=== PATIENT | male | born 1965 | race African-American/Black ===

== ENCOUNTER 2019-12-10 15:22 | Inpatient (IN) | payer OTHER ==
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
[2019-12-10] MEDS ORDERED: NS 0.9% 1000 ML** 1,000 ML IV ONE (15:42)
[2019-12-10 16:03] LABS: ABS Basophils 0.1 10^3/ul (0-0.2); ABS Eosinophils 0.1 10^3/ul (0-0.6); ABS Lymphocytes 3.1 10^3/ul (1.0-4.8); ABS Monocytes 0.7 10^3/ul (0-0.8); ABS Neutrophils 4.6 10^3/ul (1.5-7.7); Eosinophil % 1.6 %; Hematocrit 42 % (42-52); Hemoglobin 13.9 g/dL (14.0-18.0); Lymphocyte % 35.6 %; Mean Corpuscular HGB Conc 33 g/dL (31-36); Mean Corpuscular Hemoglobin 28 pg (27-31); Mean Corpuscular Volume 84 fL (80-94); Mean Platelet Volume 7.6 fL (7.4-10.4); Nucleated Red Blood Cells % 0.1; Platelet Count 247 10^3/uL (150-450); Red Blood Count 4.94 10^6 /uL (4.18-5.48); Red Cell Distribution Width 14 % (10-15); White Blood Count 8.6 10^3/uL (3.5-10.8)
[2019-12-10 16:09] LABS: INR 1.1 (0.82-1.09)
[2019-12-10 16:20] LABS: Albumin 4.4 g/dL (3.2-5.2); Albumin/Globulin Ratio 1.6 (1-3); BUN/Creatinine Ratio 7.5 (8-20); Calcium 9.4 mg/dL (8.6-10.3); EGFR African American 76.1 (>60); EGFR Non-African American 62.9 (>60); Globulin 2.8 g/dL (2-4); Potassium 3.9 mmol/L (3.5-5.0); Total Bilirubin 0.4 mg/dL (0.2-1.0); Total Protein 7.2 g/dL (6.4-8.9)
[2019-12-10] MEDS ORDERED: Iodixanol* (CONTRAST) 320 MG/ML 100 ML SDV IV ONE (16:28)
--- NOTE | 2019-12-10 19:21 | ED ---
Progress - Progress Note Progress Note: Patient is received as a sign-out from Dr. Almeida to Dr. Vieira at 1900 shift change pending Brain MRI. BRAIN MRI IMPRESSION: 1 cm ischemic infarct at the right soto radiata and 6 mm ischemic infarct at the left soto radiata. Infarcts are most likely early subacute in age. THIS REPORT WAS REVIEWED BY ED PHYSICIAN. Course/Dx - Course Course Of Treatment: Patient is received as a sign-out from Dr. Almeida at 1900 12/10/19 shift change pending Brain MRI. BRAIN MRI IMPRESSION: 1 cm ischemic infarct at the right soto radiata and 6 mm ischemic infarct at. the left soto radiata. Infarcts are most likely early subacute in age. Patient's case was discussed with Dr. Gage, Dr. Gage accepts for admission. - Diagnoses Provider Diagnoses: CVA (cerebral vascular accident) - Provider Notifications Discussed Care Of Patient With: Estefanía Gage Time Discussed With Above Provider: 20:11 Instructed by Provider To: Other - Patient's case was discussed with Dr. Gage, Dr. Gage accepts for admission. Discharge ED - Sign-Out/Discharge Documenting (check all that apply): Patient Departure - admit, Receiving Sign- Out Receiving patient FROM: Yoandy Almeida - Discharge Plan Condition: Stable Disposition: ADMITTED TO [facility] Referrals: Lan ANNA,Charles Stokes [Primary Care Provider] - - Billing Disposition and Condition Condition: STABLE Disposition: Admitted to [facility] - Attestation Statements Document Initiated by Pasquale: Yes Documenting Scribe: VANCE DESOUZA Provider For Whom Pasquale is Documenting (Include Credential): MD Mary Kay NICHOLSibsamantha Attestation: VANCE Billings, scribed for J CARLOS VIEIRA MD on 12/10/19 at 2039. Scribe Documentation Reviewed: Yes Provider Attestation: The documentation as recorded by the VANCE campos accurately reflects the service I personally performed and the decisions made by , J CARLOS VIEIRA MD Status of Scribe Document: Viewed
[2019-12-10 19:54] LABS: Urine Appearance Clear; Urine Bilirubin Negative (Negative); Urine Blood Negative (Negative); Urine Color Yellow; Urine Glucose Negative (Negative); Urine Ketones Trace (Negative); Urine Nitrite Negative (Negative); Urine Protein Negative (Negative); Urine Specific Gravity 1.047 (1.010-1.030); Urine Urobilinogen Negative (Negative)
[2019-12-10] MEDS ORDERED: Ondansetron INJ* 2 MG/ML VIAL IV PRN (21:11)
[2019-12-10] MEDS ORDERED: Acetaminophen TAB* 325 MG PO PRN (21:11)
[2019-12-10] MEDS ORDERED: Dextrose 50% Syringe 50 ML* 25 GM/50 ML SYRINGE IV PUSH PRN (21:11)
[2019-12-10 21:33] LABS: ABS Basophils 0.1 10^3/ul (0-0.2); ABS Eosinophils 0.1 10^3/ul (0-0.6); ABS Lymphocytes 3.1 10^3/ul (1.0-4.8); ABS Monocytes 0.8 10^3/ul (0-0.8); ABS Neutrophils 4.4 10^3/ul (1.5-7.7); Eosinophil % 1.5 %; Hematocrit 41 % (42-52); Hemoglobin 13.6 g/dL (14.0-18.0); Lymphocyte % 36.9 %; Mean Corpuscular HGB Conc 33 g/dL (31-36); Mean Corpuscular Hemoglobin 28 pg (27-31); Mean Corpuscular Volume 84 fL (80-94); Mean Platelet Volume 7.8 fL (7.4-10.4); Nucleated Red Blood Cells % 0.2; Platelet Count 233 10^3/uL (150-450); Red Blood Count 4.93 10^6 /uL (4.18-5.48); Red Cell Distribution Width 14 % (10-15); White Blood Count 8.5 10^3/uL (3.5-10.8)
[2019-12-10 21:40] LABS: Activated Partial Thrombo Time 33.8 seconds (26.0-38.0); INR 1.09 (0.82-1.09)
[2019-12-10 21:47] LABS: EGFR African American 87.8 (>60); EGFR Non-African American 72.5 (>60)
[2019-12-10] MEDS: Aspirin 81 mg CHEW TAB* 81 MG TAB.CHEW PO SCH (23:34)
[2019-12-10] MEDS: Heparin VIAL(*) 5000 UNITS/ML VIAL (FIVE THOUSAND) SUBCUT SCH (23:34)
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
[2019-12-11] MEDS: Nicotine* 2MG (FRUIT FLAVOR) GUM PO PRN ×3 (00:08→18:48)
[2019-12-11] MEDS: Heparin VIAL(*) 5000 UNITS/ML VIAL (FIVE THOUSAND) SUBCUT SCH ×2 (05:08→14:44)
[2019-12-11 05:16] LABS: ABS Basophils 0.1 10^3/ul (0-0.2); ABS Eosinophils 0.2 10^3/ul (0-0.6); ABS Lymphocytes 2.8 10^3/ul (1.0-4.8); ABS Neutrophils 5.5 10^3/ul (1.5-7.7); Eosinophil % 1.6 %; Hematocrit 38 % (42-52); Hemoglobin 13.1 g/dL (14.0-18.0); Lymphocyte % 29.2 %; Mean Corpuscular HGB Conc 34 g/dL (31-36); Mean Corpuscular Hemoglobin 28 pg (27-31); Mean Corpuscular Volume 83 fL (80-94); Mean Platelet Volume 7.9 fL (7.4-10.4); Platelet Count 224 10^3/uL (150-450); Red Cell Distribution Width 14 % (10-15); White Blood Count 9.5 10^3/uL (3.5-10.8)
[2019-12-11 05:19] LABS: INR 1.1 (0.82-1.09)
[2019-12-11 05:31] LABS: BUN/Creatinine Ratio 9.8 (8-20); Calcium 8.4 mg/dL (8.6-10.3); EGFR African American 73.9 (>60); EGFR Non-African American 61.1 (>60); HDL Cholesterol 27.6 mg/dL; Potassium 3.5 mmol/L (3.5-5.0)
[2019-12-11] MEDS: Insulin LISPRO* 1 UNITS UNIT SUBCUT SCH ×3 (08:52→18:21)
[2019-12-11] MEDS: Docusate CAP* 100 MG PO SCH (08:54)
[2019-12-11] MEDS: carBAMazepine TAB(*) 200 MG PO SCH ×2 (08:54→21:00)
[2019-12-11] MEDS: Pyridoxine TAB* 50 MG PO SCH (08:54)
[2019-12-11] MEDS: Aspirin 81 mg CHEW TAB* 81 MG TAB.CHEW PO SCH (08:55)
[2019-12-11] MEDS ORDERED: Clopidogrel TAB* 75 MG PO SCH (09:00)
--- NOTE | 2019-12-11 10:37 | ECHO ---
*[facility]* [place] [address] Fax #: [phone] Transthoracic Echocardiogram Patient: Al Parks [id number] : 1965 Study Date: 12/11/2019 Age: 54 Gender: M HR: 68 bpm Height: 67 in /170.2 cm BSA: 2.03 m^2 Weight: 201.6 lb /91.6 kg BMI: 31.6 kg/m^2 *Filter Tip Catcher: * Poonam Ivey RDCS RN *Referring Physician: * Akira AdanReading Physician: * Tara Pandey MD Indications: CVA. History: Cerebrovascular accident. Risk factors: Current tobacco use. Hypertension. Diabetes mellitus. Dyslipidemia. Conclusions Summary: - Left ventricle: The cavity size is normal. Wall thickness is mildly increased. Systolic function is normal. The estimated ejection fraction is 55-60%. - Right ventricle: Systolic function is normal. - Atrial septum: Positive bubble study: Multiple bubbles seen in the left ventricle just after release of Valsalva (image 2). Location of shunt not clearly identified. - Mitral valve: There is trace regurgitation. - Tricuspid valve: There is trace regurgitation. - Compared with prior echocardiogram of 10/22/13, vemtroci;aortic regurgitation amd va;vi;aortic regurgitation function are stable. Shunt/+bubble study newly noted. Study data: Transthoracic echocardiogram. Procedure: Transthoracic echocardiography was performed. Image quality was fair. The study was technically limited due to smoking history. A bubble study was performed on Images 1-3. Complete 2D, spectral Doppler, and color flow Doppler. Location: Bedside. Patient status: Inpatient. Patient room number: 433. Rhythm: Normal sinus rhythm. Findings Left ventricle: The cavity size is normal. Wall thickness is mildly increased. Systolic function is normal. The estimated ejection fraction is 55-60%. Wall motion is normal; there are no regional wall motion abnormalities. There is no consistent Doppler evidence of clinically significant diastolic dysfunction. Right ventricle: The cavity size is normal. Systolic function is normal. Left atrium: The atrium is normal in size. Right atrium: The atrium is normal in size. Atrial septum: A patent foramen ovale cannot be excluded. Possible suggestion of shunting by color Doppler. Positive bubble study: bubbles seen in the left ventricle on release of Valsalva (image 2). Mitral valve: The leaflets are mildly thickened. There is no evidence of stenosis. There is trace regurgitation. Aortic valve: The valve is trileaflet. The leaflets are mildly thickened. There is no evidence of stenosis. There is no significant regurgitation. Tricuspid valve: The leaflets are normal thickness. There is no evidence of stenosis. There is trace regurgitation. Pulmonic valve: The valve is structurally normal. There is no evidence of stenosis. There is no significant regurgitation. Aorta: Aortic root: The aortic root is appears normal. Ascending aorta: The ascending aorta is not dilated. Aortic arch: The aortic arch is not dilated. Pericardium: A prominent pericardial fat pad is present. There is no pericardial effusion. Pulmonary arteries: The main pulmonary artery is normal-sized. Systolic pressure cannot be accurately estimated. Systemic veins: Inferior vena cava: The vessel is normal in size. There is (>= 50%) respiratory change in the IVC dimension. Measurements Left ventricle Value Ref Aortic valve Value Ref DORA, LAX 4.3 cm 4.2 - 5.8 Tom diam, ED 2.1 cm ---- ESD, LAX 2.9 cm 2.5 - 4.0 Peak v, S 1.1 m/sec ---- FS, LAX 33 % 25 - 43 VTI, S 18.6 cm ---- FS 33 % 25 - 43 Mean grad, S 3.0 mm Hg ---- PW, ED (H) 1.2 cm 0.6 - 1.0 Peak grad, S 5.0 mm Hg ---- IVS/PW, ED 1 LVOT/AV, VTI ratio 1.11 ---- E', lat tom, TDI 12.7 cm/sec >=10.0 E/e', lat tom, 7 Mitral valve Value Ref TDI Peak E 0.89 m/sec ---- E', med tom, TDI (L) 6.2 cm/sec >=7.0 Peak A 0.8 m/sec -- -- E/e', med tom, 14 Decel time 218 ms ---- TDI Peak grad, D 3.2 mm Hg ---- E', avg, TDI 9.5 cm/sec Peak E/A ratio 1.1 ---- E/e', avg, TDI 9 <=14 Pulmonic valve Value Ref LVOT Value Ref Peak v, S 0.91 m/sec ---- Peak tish, S 1.01 m/sec Peak grad, S 3.0 mm Hg ---- VTI, S 20.6 cm Mean grad, S 2 mm Hg Aortic root Value Ref Root diam 3.1 cm <4.2 Ventricular septum Value Ref IVS, ED (H) 1.2 cm 0.6 - 1.0 Ascending aorta Value Ref AAo AP diam, S 2.9 cm ---- Right ventricle Value Ref DORA, LAX 3.0 cm Aortic arch Value Ref DORA minor ax, A4C 3.2 cm 1.9 - 3.5 Arch diam 2.9 cm ---- mid Decending aorta Value Ref Left atrium Value Ref Mima peak tish 0.74 m/sec ---- AP dim, ES 3.10 cm 3.00 - 4.00 Inferior vena cava Value Ref ML dim, A4C 3.5 cm Diam 1.5 cm ---- SI dim, A4C 4.4 cm Vol/bsa, ES, 1-p 17 ml/m^2 12 - 37 A4C Vol/bsa, ES, A/L 20 ml/m^2 16 - 34 Right atrium Value Ref ML dim, ES, A4C 3.2 cm 2.6 - 4.4 SI dim, ES, A4C 4.4 cm 3.4 - 5.3 Estimated RAP 3 mm Hg Legend: (L) and (H) sanjana values outside specified reference range. Prepared and electronically signed by Tara Pandey MD 12/11/2019 10:36
--- NOTE | 2019-12-11 16:26 | CONS ---
NEUROLOGY CONSULTATION NOTE: DATE OF CONSULT: 12/11/19 CONSULTING PROVIDER: Dr. Pete Almeida. REASON FOR CONSULT: Right hemiparesis. CHIEF COMPLAINT: Right leg weakness. HISTORY OF PRESENT ILLNESS: Mr. 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 The patient stated that he was last known well on Monday morning at 2 a.m. after watching a movie. He went to sleep for approximately 5 hours and then woke up at 7 a.m. on 12/07/19 with symptoms of dizziness, gait imbalance, and right leg weakness. He states that he usually can stand briefly and bear weight on the right leg. However, when he stood up that morning, he could barely support himself. He had to sit back in his wheelchair. The patient is wheelchair bound since his stroke in 2013. He had mild headaches. He also noticed reduced movements of the right arm and right hand. He has had similar symptoms in the left lower extremity and that is when he was diagnosed with a stroke. The patient takes Plavix regularly. He is on statin therapy daily. The patient is incarcerated for the past 12 years and has 1 month left until he is released. NIHSS: 4, with old deficits 9. Not an alteplase candidate. This recommendation was in place on 12/11/19 at 1400. PAST MEDICAL HISTORY: Medullary stroke in 2013 with residual right leg weakness , hypertension, dyslipidemia, obstructive sleep apnea, tobacco use. MEDICATIONS: 1. Metformin 1000 mg p.o. b.i.d. 2. Pyridoxine 100 mg p.o. daily. 3. Docusate 200 mg p.o. daily. 4. Carbamazepine 200 mg p.o. b.i.d. 5. Atorvastatin 20 mg p.o. at bedtime. 6. Lisinopril 5 mg p.o. at night. 7. Clopidogrel 75 mg p.o. daily. 8. Insulin glargine 20 units subcutaneously. ALLERGIES: ACETAMINOPHEN, GRAPE, and OXYCODONE. FAMILY HISTORY: The patient denied any family history of stroke or seizures. SOCIAL HISTORY: He smokes approximately 10 cigarettes a day. He denied any alcohol use for the past 12 years. He is incarcerated. He has 4 children who visit him in [facility] regularly. REVIEW OF SYSTEMS: A 14-point review of systems was obtained and otherwise negative except for what was mentioned in the HPI. PHYSICAL EXAM: Vitals: Temperature of 98, pulse of 70, respiratory rate of 20 , oxygen saturation of 100%, blood pressure of 145/75. General: Well-nourished , well-developed man, in no acute distress. He is extremely pleasant. Head: Atraumatic, normocephalic without any obvious abnormality. Neck is supple and symmetrical with no carotid bruits. Eyes: Conjunctivae/corneas are clear. Chest: Clear to auscultation bilaterally with no wheezing or rhonchi. Cardiovascular: Regular rate and rhythm with normal S1, S2. Extremities: Normal range of motion with no cyanosis or edema. Skin: No skin lesions or lacerations. Psych: Affect is broad, normal mood, easy to establish rapport. Neurological Examination: Mental Status: Awake, alert, oriented to person, place, time, general circumstances. Speech and language including repetition and comprehension and fluency were assessed and found to be normal except for he has gotten very mild spastic dysarthria. Cranial Nerves: Pupils equal, round, reactive to light. Extraocular muscles are intact. There is normal sensation on the face. There is mild facial asymmetry with a slight facial droop on the right side. Motor Examination: He has a 4/5 weakness to elbow extension on the right. He cannot lift the left lower extremity. He is able to elevate the right lower extremity antigravity. Reduced sensation to light touch on the arm and leg on the right. Vibratory sensation is intact at the toes bilaterally. Coordination: Normal [id number] testing in the upper extremities bilaterally. Gait was not assessed as the patient is wheelchair bound. DIAGNOSTIC STUDIES/LAB DATA: WBC of 9.5, hemoglobin of 13, hematocrit of 38. INR of 1.10. Sodium of 139, potassium of 3.5, chloride of 108, creatinine is 1.23, glucose 155, hemoglobin A1c of 6.6. Cholesterol of 156, LDL 75. Urinalysis negative for pyuria. CT head without contrast was obtained on 12/10/19 that was reported to show no acute intracranial abnormality. I personally reviewed the study. There are some areas of hypodensity on the CT that is in the paraventricular and centrum semiovale on the left side as well as near the basal ganglia on the right. CTA head and neck show no evidence of large vessel occlusion, aneurysm, or dissection. MRI of the brain without contrast shows multiple areas of restricted diffusion involving the right soto radiata and the left soto radiata measuring less than 1.5 cm infarct. Transthoracic echo was obtained and showed an ejection fraction of 55% to 60%. There is a positive bubble study with multiple bubbles seen in the left ventricle just after release of Valsalva. Please note that, an echo was done in 2013 after the patient's stroke, but from what I can see in brief review of the report, a bubble study was not done at that time. ASSESSMENT AND RECOMMENDATIONS: Mr. Al Parks is a 54-year-old right- handed pleasant man who has history of hypertension, dyslipidemia, diabetes mellitus type 2, remote right lateral medullary stroke with residual left leg weakness. Subsequently, he is wheelchair bound since the stroke in 2013. He presented to our facility with acute right hemiparesis and gait instability. The patient was found to have acute multifocal cerebral infarctions attributing to his symptoms. 1. Acute multifocal subcortical embolic strokes less than 1.5 cm in size. NIH stroke scale is slightly elevated due to his chronic deficit. If only counting his new deficits, his NIH stroke scale is approximately 4, but with his old deficits, the score is 9. The patient is not a candidate for alteplase therapy due to being outside the therapeutic window upon presenting to the ED. The patient is not a candidate for mechanical thrombectomy because he does not have a large vessel occlusion. Due to the findings of a patent foramen ovale and now his second stroke within the past 6 years in someone that is less than 60 years of age, further cardiac intervention like PFO closure should be considered. The patient will need a transesophageal echo and an evaluation by a supervisor assembly stock for patent foramen ovale closure. This does not need to be done at an emergent basis. However, he did fail Plavix therapy and I do not think he will benefit from dual-antiplatelet therapy given that he is immobile, could potentially have deep vein thrombosis that are not picked up on the current venous ultrasound or have deep vein thrombosis in the pelvic veins causing increased risk of cardioembolic strokes in the setting of a patent foramen ovale. Therefore, after discussing this with the patient and the primary team, we have decided to start him on a combination of anticoagulation therapy and aspirin. I recommend starting him on Eliquis 5 mg twice daily starting tonight. The risks and benefits of Eliquis were discussed in detail. The patient is aware of the risk of bleeding both intra and extracranially, especially if he falls. Once he gets the patent foramen ovale surgically closed, then he can switch to antiplatelet therapy with either Plavix or aspirin. We should also consider placing a loop recorder as an outpatient to monitor for atrial fibrillation given his risk factors, which include obstructive sleep apnea. Continue statin therapy. Stroke education was implemented and done with the patient today. I urged the patient to stop smoking. 2. Dyslipidemia. Continue statin therapy. 3. Hypertension. We can now improve his blood pressure and not continue any permissive hypertension given that we are starting him on anticoagulation therapy and we need his blood pressure to be at least within the systolic blood pressure of 120 to 130 mmHg to reduce the risk of hemorrhage. 4. Diabetes mellitus type II. Continue treatment per the primary team. Please contact me for any questions or concerns. Please make sure the patient has PT/OT/BOOK CANVASSER evaluation and treatment. [id number]/[facility] #: [id number] ADRIANNE
--- NOTE | 2019-12-11 17:39 | PN ---
Subjective Date of Service: 12/11/19 Interval History: HD 2 on 12/10 54 M with PMH of right medullary stroke with left sided residual weakness( wheelchair bound), Hemiplegic Migraines, DM, HTN, RAJESH(Cpap) presented with acte right sided weakness, headache and gait instability. Found to have subaucte multifocal stroke and PFO. Currently on AC. OVernight: admitted Patient seen and examined at bedside. Patient states he has dizziness while walking and standing which is present since monday. Denies vertigo, nausea and vomiting. Patient is wheelchair bound but can go to bathroom with assistance. Objective Active Medications: Acetaminophen (Tylenol Tab*) 650 mg PO Q4H PRN PRN Reason: PAIN - MILD Apixaban (Eliquis*) 5 mg PO BID [facility] Aspirin (Aspirin 81 Mg Chew Tab*) 81 mg PO DAILY [facility] Last Admin: 12/11/19 08:55 Dose: 81 mg Atorvastatin Calcium (Lipitor*) 80 mg PO 2100 ONE Stop: 12/11/19 21:01 Carbamazepine (Tegretol Tab(*)) 200 mg PO BID [facility] Last Admin: 12/11/19 08:54 Dose: 200 mg Dextrose (D50w Syringe 50 Ml*) 12.5 gm IV PUSH .FOR FS < 60 - SS PRN PRN Reason: FS < 60 Docusate Sodium (Colace Cap*) 200 mg PO DAILY [facility] Last Admin: 12/11/19 08:54 Dose: 200 mg Heparin Sodium (Porcine) (Heparin Vial(*)) 5,000 units SUBCUT Q8HR [facility] Last Admin: 12/11/19 14:44 Dose: 5,000 units Insulin Glargine (Lantus(*)) 20 units SUBCUT QPM [facility] Insulin Human Lispro (Humalog*) 0 units SUBCUT AC [facility]; Protocol Last Admin: 12/11/19 12:46 Dose: 3 units Lisinopril (Prinivil Tab*) 5 mg PO QPM [facility] Nicotine Polacrilex (Nicotine Gum*) 2 mg PO Q2H PRN PRN Reason: CRAVING Last Admin: 12/11/19 08:57 Dose: 2 mg Ondansetron HCl (Zofran Inj*) 4 mg IV Q6H PRN PRN Reason: NAUSEA Pyridoxine HCl (Vitamin B6 Tab*) 100 mg PO DAILY [facility] Last Admin: 12/11/19 08:54 Dose: 100 mg Vital Signs - 8 hr 12/11/19 15:20 Temperature 97.7 F Pulse Rate 80 Respiratory 16 Rate Blood Pressure 148/70 (mmHg) O2 Sat by Pulse 99 Oximetry Oxygen Devices in Use Now: None Exam: Constitutional: Well-developed, Well-nourished, Alert. Skin: Warm, Dry HENT: Normocephalic; Atraumatic Eyes: Conjunctiva normal Neck: Musculoskeletal ROM normal neck. Cardio: Rhythm regular, rate normal, Heart sounds normal; Intact distal pulses; The pedal pulses are 2+ and symmetric. Radial pulses are 2+ and symmetric. (-) Murmur Pulmonary/Chest wall: clear with no added sounds Abd: Soft, nondistended and nontender Musculoskeletal: (-) Edema Lymph: (-) Cervical adenopathy Neuro: Alert, Oriented x3, LLE paralysis (previous stroke), Cranial nerves II- XII are grossly intact. RUE 3/5, LUE 5/5, RLE 4/5. Sensation intact GCS: 15 Result Diagrams: 12/12/19 04:13 12/12/19 04:13 Assess/Plan/Problems-Billing Assessment: 54 M with PMH of right medullary stroke with left sided residual weakness( wheelchair bound), Hemiplegic Migraines, DM, HTN, RAJESH(Cpap) presented with acte right sided weakness, headache and gait instability. Found to have subaucte multifocal stroke and PFO. Currently on AC. - Patient Problems (1) CVA (cerebral vascular accident) Current Visit: Yes Status: Acute Code(s): I63.9 - CEREBRAL INFARCTION, UNSPECIFIED SNOMED Code(s): 333535798 Comment: -Acute multifocal stroke- has weakness on right side -Brain CT: Normal -Brain MRI: 1 cm and 6 mm infarct on right and left soto radiata respectively -Echo; Positive bubble study; No LA dialtation -Monitor on tele -Doppler: No DVT -Appreciate Neuro INput -Patient has failed plavix and givne he is immobile he needs to be anti- coagulant until he gets PFO closure -He should f.u with precision machinist within 1 month and have JOE and PFO closure -WE will start him on eliquis and baby aspirin - LDL goal <70: statin increased to 80 mg- watch for side effects -PT/OT ordered- recommends acute OT -Patient will also benefit from loop recorder as outpatient to detect afib (2) Hypertension Current Visit: Yes Status: Acute Code(s): I10 - ESSENTIAL (PRIMARY) HYPERTENSION SNOMED Code(s): 16346279 Comment: -BP on higher side -on lisinopril 5 mg -goal BP 120-130 -if still elevated then will increase dose to 10 mg (3) Diabetes Current Visit: Yes Status: Acute Code(s): E11.9 - TYPE 2 DIABETES MELLITUS WITHOUT COMPLICATIONS SNOMED Code(s): 42987765 Comment: -well controlled -A1c is 6.6 -was on metformin and glargine 20 U -Continue lantus and lispro ss (4) RAJESH (obstructive sleep apnea) Current Visit: Yes Status: Acute Code(s): G47.33 - OBSTRUCTIVE SLEEP APNEA ( ADULT) (PEDIATRIC) SNOMED Code(s): 40983178 Comment: -On CPAP (5) DVT prophylaxis Current Visit: Yes Status: Acute Code(s): Z29.9 - ENCOUNTER FOR PROPHYLACTIC MEASURES, UNSPECIFIED SNOMED Code(s): 618840595 Comment: -on eliquis (6) Full code status Current Visit: Yes Status: Acute Code(s): Z78.9 - OTHER SPECIFIED HEALTH STATUS SNOMED Code(s): 792270234 Status and Disposition: Inpatient Neuro following PT/OT ordered Dispo: dc when stable; pending PT/OT input Attending: Ana Hilton Attestation Documenting Resident: Deanne Supervising Physician: Yobani Attending/Supervising Physician Comment: Will need PFO closure; we will refer to Dr. Lr. Therapeutic anticoagulation + ASA (dc plavix) Will need rehab at discharge. Attestation: This service has been performed in part by a resident under the direction of a teaching physician.IYobani, performed the service, or was physically present during the critical, or jin portions of the service, furnished by the resident. I participated in the management of the patient.
[2019-12-11] MEDS ORDERED: Lisinopril TAB* 5 MG PO SCH (18:00)
[2019-12-11] MEDS ORDERED: Insulin GLARGINE(*) 1 UNITS UNIT SUBCUT SCH (18:00)
[2019-12-11] MEDS ORDERED: Atorvastatin* 80 MG TAB PO ONE (21:00)
[2019-12-11] MEDS: Apixaban* 5 MG TAB PO SCH (21:00)
[2019-12-12] MEDS: Nicotine* 2MG (FRUIT FLAVOR) GUM PO PRN ×3 (01:04→12:30)
[2019-12-12 04:25] LABS: Hematocrit 39 % (42-52); Hemoglobin 12.9 g/dL (14.0-18.0); Mean Corpuscular HGB Conc 33 g/dL (31-36); Mean Corpuscular Hemoglobin 28 pg (27-31); Mean Corpuscular Volume 83 fL (80-94); Mean Platelet Volume 7.6 fL (7.4-10.4); Platelet Count 233 10^3/uL (150-450); Red Blood Count 4.65 10^6 /uL (4.18-5.48); Red Cell Distribution Width 14 % (10-15); White Blood Count 8.5 10^3/uL (3.5-10.8)
[2019-12-12 04:41] LABS: BUN/Creatinine Ratio 11.2 (8-20); Calcium 8.8 mg/dL (8.6-10.3); EGFR African American 79.1 (>60); EGFR Non-African American 65.4 (>60); Potassium 3.8 mmol/L (3.5-5.0)
[2019-12-12] MEDS: Pyridoxine TAB* 50 MG PO SCH (09:08)
[2019-12-12] MEDS: Docusate CAP* 100 MG PO SCH (09:08)
[2019-12-12] MEDS: Aspirin 81 mg CHEW TAB* 81 MG TAB.CHEW PO SCH (09:08)
[2019-12-12] MEDS: Apixaban* 5 MG TAB PO SCH (09:08)
[2019-12-12] MEDS: carBAMazepine TAB(*) 200 MG PO SCH (09:09)
[2019-12-12] MEDS: Insulin LISPRO* 1 UNITS UNIT SUBCUT SCH ×2 (09:09→12:28)
--- NOTE | 2019-12-12 16:02 | DS ---
CC: [facility] * DATE OF ADMISSION: 12/10/2019. DATE OF DISCHARGE: 12/12/2019. PRINCIPAL DISCHARGE DIAGNOSES: 1. Embolic cerebrovascular accident. 2. Migraines. 3. Hypertension. 4. Hyperlipidemia. 5. Diabetes. 6. Sleep apnea. MEDICATIONS: 1. Metformin 1,000 mg b.i.d. 2. Vitamin B6 100 mg daily. 3. Docusate 200 mg daily. 4. Carbamazepine 200 mg b.i.d. 5. Lisinopril 5 mg daily. 6. Lantus 20 units nightly. 7. Tylenol 650 q.4 prn pain. 8. Apixaban 5 mg b.i.d. 9. Aspirin 81 mg daily. 10. Atorvastatin 80 mg daily. 11. Nicotine gum 2 mg q.2 prn cravings. PHYSICAL EXAMINATION ON THE DAY OF DISCHARGE: General: Alert, well-appearing man in no distress. Vital Signs: Temperature 97.7, heart rate 67, respiratory rate 17, pulse ox 100 percent on room air, blood pressure 132/76. HEENT: Pupils equal, round, and reactive to light. Extraocular muscles intact. Oral mucosa is moist. Neck: No JVP, no adenopathy. Chest: He has an irregular rate and rhythm with no murmurs. Lungs: Clear bilaterally. Abdomen: Soft, nontender, nondistended. Extremities: His right upper extremity is 3/5, his left upper extremity is 5/5. His left lower extremity is 0/5 and his right lower extremity is 5/5. His face is symmetric. He is oriented and his cognition is intact. CONSULTATIONS DURING THIS ADMISSION: Dr. Sofiya Venegas of Neurology. PERTINENT STUDIES ON THIS ADMISSION: 1. Brain MRI on 12/10/2019 showed a 1 cm ischemic infarct at the right soto radiata and 6 mm ischemic infarct at the left soto radiata. Infarcts are most likely early subacute in age. 2. Head CTA on 12/10/2019 showed no aneurysm dilatation. Carotid arteries demonstrates demonstrated no significant stenosis and no evidence of carotid or vertebral artery dissection is noted. 3. Transthoracic echocardiogram on 12/10/2019 showed LVEF 55 to 60 percent. The atrial septum was positive for a bubble study with multiple bubbles seen in the LV just after release of Valsalva. Location of shunt not clearly identified. The mitral valve had trace regurgitation. Tricuspid valve had trace regurgitation. 4. Venous Doppler study on 12/11/2019 showed right posterior peroneal vein could not be visualized. Otherwise, no evidence for DVT. HOSPITAL COURSE BY PROBLEM: 1. CVA: This was Mr. Parks' second CVA. The first one was in 2013 and the etiology was unclear at that time. This time, the echocardiogram was positive for a PFO based on his young age and a recurrent embolic CVA. Dr. Venegas recommended referral for PFO closure and therapeutic anticoagulation. Because he had been on Plavix when the stroke occurred, his Plavix will be discontinued. Dr. Venegas's note explains that him having a PFO and a second stroke within six years in someone less than 60, warrants closure of the PFO. We do not have interventional cardiologists at this facility who close PFO's, so we have made a referral to Dr. Lr of [facility] who performed this procedure. We have have been in touch with his office and are told that he is not currently scheduling patients for the next month due to the current events and they will receive our discharge summary and plan to schedule him for a later date. He will be covered in the meantime with therapeutic anticoagulation with Apixaban, but follow-up with need to be arranged with an hooker up and our recommendation and referral is for Dr. Lr. I do note that Mr. Parks is supposed to be released from [place] in January. Should this happen prior to his appointment with Dr. Lr, it will crucial for him to be referred to an hooker up who can perform this procedure under transesophageal echocardiogram wherever his next home will be. I have provided him with four days of Apixaban to bridge him until [place] can attain the Apixaban. He was followed by Occupational Therapy, Physical Therapy, and Speech Therapy and Occupation and Physical Therapy recommended ongoing OT and PT. Speech Therapy recommended a regular diet. We also increased his statin to 80 mg daily. 2. Hypertension: He was continued on his home antihypertensive of Lisinopril and he had adequate blood pressure on that. 3. Diabetes: He was continued on Metformin and Lantus. DISPOSITION: Mr. Parks is being discharged on 12/12/2019 [facility]. CONDITION ON DISCHARGE: Stable. FOLLOW-UP NEEDED: He will need follow-up with a neurologist and also with Dr. Lr which will need to be arranged at [facility]. We have been unable to schedule this due to the current pandemic and this will need to be followed up so that Mr. Parks can get his PFO closed. He understands the need for this and to follow-up if it is not arranged for him prior to discharge from [place]. [id number]/[facility] #: [id number] ADRIANNE
[2019-12-12] MEDS ORDERED: Pneumococcal *Vac Polyvalent 0.5 ML VIAL ONE (16:09)
[2019-12-12] MEDS ORDERED: Atorvastatin* 80 MG TAB PO SCH (17:00)
[2019-12-12 18:12] VITALS: BP 130/69
[2019-12-13] MEDS ORDERED: Pneumococcal *Vac Polyvalent 0.5 ML VIAL IM ONE (09:00)
== END 2019-12-12 15:30 | DRG 45 ==
LOC: ED 15:22 → MEDTELE 21:07 → EEVIPCON 21:07
PROVIDERS: ADMIT Nurse Practitioner Family; ATTEND Internal Medicine
DX: I63.40 Cerebral infarction due to embolism of unspecified cerebral artery (principal); I69.354 Hemiplegia and hemiparesis following cerebral infarction affecting left non-dominant side; Q21.1 Atrial septal defect; G81.91 Hemiplegia, unspecified affecting right dominant side; G43.409 Hemiplegic migraine, not intractable, without status migrainosus; R47.1 Dysarthria and anarthria; R29.810 Facial weakness; E11.40 Type 2 diabetes mellitus with diabetic neuropathy, unspecified; G47.33 Obstructive sleep apnea (adult) (pediatric); F17.210 Nicotine dependence, cigarettes, uncomplicated; I10 Essential (primary) hypertension; E78.5 Hyperlipidemia, unspecified; Z99.89 Dependence on other enabling machines and devices; Z79.84 Long term (current) use of oral hypoglycemic drugs; Z79.02 Long term (current) use of antithrombotics/antiplatelets; Z79.4 Long term (current) use of insulin; Z79.899 Other long term (current) drug therapy; Z88.8 Allergy status to other drugs, medicaments and biological substances; Z91.018 Allergy to other foods; Z99.3 Dependence on wheelchair; Z88.6 Allergy status to analgesic agent
CPT/HCPCS: 36415; 70450; 70496; 70498; 70551; 80048; 80053; 80061; 81003; 82565; 82947; 83036; 84484; 84520; 85025; 85027; 85610; 85730; 90732; 93005; 93306; 93970; 94660; 96360; 96361; 99284; A9270-GY; J1644; Q9967